=== PATIENT | female | born 1970 | race Caucasian/White ===

== ENCOUNTER → 2019-04-27 | Outpatient (CLI) | payer OTHER ==
[~2019-04-27] MED LIST: ANTOXYBENA OT; CEPH500; CIPDEXSU; CIPR750 PO; SERT100
[2019-04-28 09:33] LABS: Candida species (DNA Probe) Negative (NEGATIVE); G. vaginalis (DNA Probe) Positive (NEGATIVE); T. vaginalis (DNA Probe) Negative (NEGATIVE)
[2019-05-01 15:07] LABS: HPV 16 Negative (Negative); HPV 18 Negative (Negative); HPV OTHER HR TYPES Negative (Negative)
== END | disposition home or self-care (01) ==
LOC: LAB 12:00 → LAB SHORT 12:00
PROVIDERS: Advanced Practice Midwife
DX: Z01.419 Encounter for gynecological examination (general) (routine) without abnormal findings (principal); N76.0 Acute vaginitis
CPT/HCPCS: 87480; 87510; 87624; 87660; G0123

== ENCOUNTER 2022-06-17 13:37 | Day surgery (SDC) | payer OTHER ==
[~2022-06-17] VITALS: Ht 170.2 cm; Wt 134.4 kg
[2022-06-17] MEDS ORDERED: LEVSOD25 (14:28)
[2022-06-17] MEDS ORDERED: ALBU2.5V5 (14:29)
[2022-06-17] MEDS ORDERED: HYDPAM50 (14:29)
== END 2022-06-17 16:41 | disposition home or self-care (01) ==
LOC: ORSCSDS 13:37
PROVIDERS: Internal Medicine Gastroenterology
PROC: 0DJD8ZZ Inspection of Lower Intestinal Tract, Via Natural or Artificial Opening Endoscopic (ICD-10-PCS; principal; 2022-06-17 15:00)
DX: Z12.11 Encounter for screening for malignant neoplasm of colon (principal); Z87.891 Personal history of nicotine dependence; E03.9 Hypothyroidism, unspecified; Z79.899 Other long term (current) drug therapy; E66.01 Morbid (severe) obesity due to excess calories; Z68.42 Body mass index [BMI] 45.0-49.9, adult
CPT/HCPCS: J0330; J0461; J2001; J2250; J2405; J2704; J3010; J7120; Q9968

== ENCOUNTER 2022-10-28 10:21 | Emergency (ER) | payer OTHER ==
[~2022-10-28] VITALS: Ht 170.2 cm; Wt 135.6 kg
[~2022-10-28 10:21] MED LIST changes: +ALBU2.5V5; +HYDPAM50; +LEVSOD25
[2022-10-28 10:45] VITALS: BP 169/84
[2022-10-28] MEDS ORDERED: Ultram50 MG PO (12:35)
[2022-10-28] MEDS ORDERED: CYCL10 PO (12:35)
== END 2022-10-28 12:43 | disposition home or self-care (01) ==
LOC: ER 10:21
DX: M16.12 Unilateral primary osteoarthritis, left hip (principal)
CPT/HCPCS: 73502; J1885